=== PATIENT | female | born 1975 | race African-American/Black ===

== ENCOUNTER 2016-04-01 03:56 | Emergency (ER) | payer OTHER ==
[~2016-04-01] VITALS: Ht 157.5 cm; Wt 60.0 kg
[~2016-04-01 03:56] MED LIST: DICY1TAB25 PO; LISI-461 PO; PRT40 PO
[2016-04-01 04:02] VITALS: TEMP 36.7; Ht 157.5 cm; Wt 60.0 kg
--- NOTE | 2016-04-01 04:32 | EMERGENCY ROOM VISIT NOTE ---
History Report prepared by Chrissy: Liz Kemp Under the Supervision of: Dr. Kristin Moreland D.O. First contact with patient: 04:08 Chief Complaint: FLANK PAIN Stated Complaint: LOWER BACK AND STOMACH PAIN History of Present Illness The patient is a 40 year old female who presents to the Emergency Room with complaints of persistent left flank pain that began Saturday. She currently rates her discomfort as a 9/10 in severity. The patient states that she developed the left flank pain Saturday and additionally notes left lower quadrant abdominal pain. She denies ever having pain like this in the past. The patient denies any fever, nausea or vomiting. She notes a history of diverticulitis and pyelonephritis, but denies any history of a kidney stone. The patient states that she was at work this evening when she decided she needed further evaluation. She notes a history of a hysterectomy and an appendectomy. Source of History: patient Onset: Saturday Position: other (left flank) Symptom Intensity: 9/10 Timing: other (persistent) Associated Symptoms: + abdominal pain (left lower quadrant), No fevers, No nausea, No vomiting Review of Systems See HPI for pertinent positives & negatives. A total of 10 systems reviewed and were otherwise negative. Past Medical & Surgical Medical Problems: (1) ASTHMA, UNSPECIFIED (2) Hypertension Nos (3) Sarcoidosis (4) Tobacco Use Disorder Surgical Problems: (1) History of hysterectomy Family History Cancer Kidney disease Kidney stones Social History Smoking Status: Current Every Day Smoker Alcohol Use: none Drug Use: none Marital Status: in relationship Housing Status: lives with family Occupation Status: unemployed Current/Historical Medications Scheduled Lisinopril (Lisinopril), 10 MG PO QAM Metoprolol Succ (Toprol Xl) (Toprol-Xl), 1 TAB PO DAILY Allergies Coded Allergies: Morphine (Verified Allergy, Unknown, rash, 04/01/16) Physical Exam Vital Signs Date Time Temp Pulse Resp B/P Pulse Ox O2 Delivery O2 Flow Rate FiO2 04/01/16 07:30 76 15 141/88 100 Room Air 04/01/16 05:37 63 18 145/94 100 Room Air 04/01/16 04:02 36.7 92 18 161/97 98 Room Air Physical Exam HEENT: Head - normocephalic and atraumatic Pupils are equal, round, and reactive to light. Extraocular eye muscles are intact, and sclera are anicteric. Nose - moist nasal mucosa without discharge. Mouth - moist buccal mucosa. Oropharynx is nonerythematous and there is no tonsillar exudate or edema noted. Neck: Supple; no JVD, nuchal rigidity, cervical lymphadenopathy. Heart: Regular rate and rhythm. There is a normal S1 and S2 with no murmurs, clicks, or gallops appreciated. Lungs: Clear to auscultation bilaterally with no wheezes, rales, or rhonchi. Abdomen: Left lower abdominal pain with palpation. Soft, nondistended, with good bowel sounds. There are no palpable pulsatile masses or hepatosplenomegaly. There is no guarding, rigidity, or rebound noted. Back: Left CVA tenderness. Extremities: No evidence of cyanosis, clubbing, or edema. There are easily palpable peripheral pulses. Skin: warm and dry with good turgor and no rashes. Medical Decision & Procedures ER Provider Diagnostic Interpretation: CT SCAN OF THE ABDOMEN AND PELVIS WITH IV CONTRAST CLINICAL HISTORY: Generalized abdominal pain. COMPARISON STUDY: Abdominal CT dated 11/27/2013 and 04/27/10. MRCP dated 09/08/2015. TECHNIQUE: Following the IV administration of 93 cc of Optiray 320, CT scan of the abdomen and pelvis is performed from the lung bases to the proximal femora. Images are reviewed in the axial, sagittal, and coronal planes. IV contrast was administered without complication. Automated dose control exposure was utilized. CT DOSE: 256.64 mGy.cm FINDINGS: Lung bases: The heart is normal in size and without pericardial effusion. Emphysematous change is noted. No airspace consolidation or pleural effusion is seen. There is minimal dependent atelectasis. Liver: The contrast-enhanced liver is normal in size, contour, and attenuation. There is mild intra and extrahepatic biliary ductal dilatation, which is similar to the 11/27/2013 examination. Fatty infiltration is seen adjacent to the falciform ligament. The hepatic veins and portal veins are patent. An indeterminant 7 mm hypodensity in the right lobe seen on image #50 is unchanged from 2011. Gallbladder: Unremarkable. Spleen: Normal in size and attenuation. Pancreas: Unremarkable. Adrenal glands: Unremarkable. Kidneys: The contrast enhanced kidneys are normal in size and without hydronephrosis. The kidneys enhance symmetrically. Scattered subcentimeter cortical hypodensities likely represent cysts but are too small for definitive characterization. These are unchanged from previous. Abdominal vasculature: The abdominal aorta is normal in course and caliber noting mild but age advanced atherosclerotic calcification. Bowel: The small bowel and colon are normal in course and caliber. There is mild colonic diverticulosis without CT evidence of acute diverticulitis. This is greatest involving the right colon. The appendix is not identified and reported surgically absent. Peritoneum: There is no intraperitoneal free air or abdominal ascites. Lymphadenopathy: None. Pelvic viscera: The bladder is normal as visualized. The uterus is surgically absent. No adnexal lesion is seen. Skeletal structures: No lytic or blastic lesions are seen. IMPRESSION: 1. There are no acute infectious or inflammatory findings in the abdomen or pelvis. 2. Mild intra and extrahepatic biliary ductal dilatation is of indeterminant significance but unchanged from multiple prior studies dating back to 2010. Correlation with clinical findings and serum bilirubin levels will be required. 3. Mild colonic diverticulosis without CT evidence of acute diverticulitis. 4. Emphysema. 5. There is mild but age advanced atherosclerotic calcification of the abdominal aorta. 6. Additional findings as above. Electronically signed by: Neville Youssef M.D. 04/01/2016 8:12 AM Laboratory Results 04/01/16 04:35 Red Blood Count 3.93, Mean Corpuscular Volume 87.8, Mean Corpuscular Hemoglobin 30.3, Mean Corpuscular Hemoglobin Concent 34.5, Mean Platelet Volume 9.4, Neutrophils (%) (Auto) 55.2, Lymphocytes (%) (Auto) 31.8, Monocytes (%) (Auto) 11.4, Eosinophils (%) (Auto) 1.4, Basophils (%) (Auto) 0.2, Neutrophils # (Auto ) 3.05, Lymphocytes # (Auto) 1.76, Monocytes # (Auto) 0.63, Eosinophils # (Auto ) 0.08, Basophils # (Auto) 0.01 04/01/16 04:35 Test 04/01/16 04:25 04/01/16 04:35 Urine Color YELLOW Urine Appearance CLEAR (CLEAR) Urine pH 6.5 (4.5-7.5) Urine Specific [place] 1.025 (1.000-1.030) Urine Protein NEG (NEG) Urine Glucose (UA) NEG (NEG) Urine Ketones TRACE (NEG) Urine Occult Blood NEG (NEG) Urine Nitrite NEG (NEG) Urine Bilirubin NEG (NEG) Urine Urobilinogen NEG (NEG) Urine Leukocyte Esterase NEG (NEG) White Blood Count 5.53 K/uL (4.8-10.8) Red Blood Count 3.93 M/uL (4.2-5.4) Hemoglobin 11.9 g/dL (12.0-16.0) Hematocrit 34.5 % (37-47) Mean Corpuscular Volume 87.8 fL (80-100) Mean Corpuscular Hemoglobin 30.3 pg (25-34) Mean Corpuscular Hemoglobin Concent 34.5 g/dl (32-36) Platelet Count 200 K/uL (130-400) Mean Platelet Volume 9.4 fL (7.4-10.4) Neutrophils (%) (Auto) 55.2 % Lymphocytes (%) (Auto) 31.8 % Monocytes (%) (Auto) 11.4 % Eosinophils (%) (Auto) 1.4 % Basophils (%) (Auto) 0.2 % Neutrophils # (Auto) 3.05 K/uL (1.4-6.5) Lymphocytes # (Auto) 1.76 K/uL (1.2-3.4) Monocytes # (Auto) 0.63 K/uL (0.11-0.59) Eosinophils # (Auto) 0.08 K/uL (0-0.5) Basophils # (Auto) 0.01 K/uL (0-0.2) RDW Standard Deviation 42.3 fL (36.4-46.3) RDW Coefficient of Variation 13.0 % (11.5-14.5) Immature Granulocyte % (Auto) 0.0 % Immature Granulocyte # (Auto) 0.00 K/uL (0.00-0.02) Anion Gap 6.0 mmol/L (3-11) Est Creatinine Clear Calc Drug Dose 73.2 ml/min Estimated GFR () 106.1 Estimated GFR (Non- 91.6 BUN/Creatinine Ratio 15.4 (10-20) Calcium Level 8.6 mg/dl (8.5-10.1) Total Bilirubin 0.4 mg/dl (0.2-1) Direct Bilirubin < 0.1 mg/dl (0-0.2) Aspartate Amino Transf (AST/SGOT) 23 U/L (15-37) Alanine Aminotransferase (ALT/SGPT) 22 U/L (12-78) Alkaline Phosphatase 90 U/L (45-117) Total Protein 8.2 gm/dl (6.4-8.2) Albumin 3.7 gm/dl (3.4-5.0) Lipase 152 U/L (73-393) Laboratory results per my review. Medications Administered Medications (Trade) Dose Ordered Sig/Joycelyn Route Start Time Stop Time Status Last Admin Dose Admin Hydromorphone HCl (Dilaudid Inj) 1 mg NOW STAT IV 04/01/16 04:33 04/01/16 04:35 DC 04/01/16 04:40 1 MG Hydromorphone HCl (Dilaudid Inj) 1 mg NOW STAT IV 04/01/16 08:04 04/01/16 08:05 DC 04/01/16 08:12 1 MG Procedure The patient was treated with Dilaudid Inj 1 mg IV X 2 ED Course 0421: Past medical records reviewed. The patient was evaluated in room B5. A complete history and physical exam was performed. An IV lock was initiated and labs are drawn as above. The patient began to prep for CT scan of the abdomen/ pelvis. 0433: Ordered Dilaudid Inj 1 mg IV. 0530: The patient is sleeping at this time. 0602: I reevaluated the patient and she was sleeping. She states that she feels more comfortable. She finished her CT prep. She went for CT scan of the abdomen/pelvis as described above. Upon returning, the patient complained of increased pain in the left lower quadrant. She was given a second dose of IV Dilaudid. I reviewed the results of the CT scan with the patient. I also reviewed the results of her labs with her. I have asked the patient to follow up closely tomorrow morning with her PCP for recheck. If her symptoms were to worsen or if she were to develop a fever or vomiting, she was directed to return here to the emergency department. Medical Decision The patient is a 40 year old female who presents to the ED with flank pain. Differential diagnosis includes pyelonephritis, cystitis, diverticulitis, colitis. Lab interpretation: urinalysis positive for ketones, no leukocytosis, anemic with a hemoglobin of 11.9, normal renal function, normal glucose and lipase, normal LFTs. This is a 40-year-old female patient who presents to the emergency department with left lower quadrant abdominal pain and seems to radiate into her left flank. She has no history of kidney stones. She does have a history of diverticulitis, C. difficile colitis, and pyelonephritis. Urinalysis was unremarkable. CT scan showed no evidence of colitis, pyelonephritis, or diverticulitis. I am not sure what is causing the patient's abdominal pain at this time. She will require close follow-up with her PCP. Impression Primary Impression: Left lower quadrant abdominal pain of unknown etiology Scribe Attestation The scribe's documentation has been prepared under my direction and personally reviewed by me in its entirety. I confirm that the note above accurately reflects all work, treatment, procedures, and medical decision making performed by me. Departure Information Referrals Deedee Bhatt D.O. (PCP) Patient Instructions My [facility]
[2016-04-01] MEDS ORDERED: HYDROmorphone INJ 1 MG/ML SYR IV STA ×2 (04:33→08:04)
[2016-04-01 04:44] LABS: BASO % 0.2 %; BASO ABS # 0.01 K/uL (0-0.2); COMPLETE YES; EOS % 1.4 %; HEMATOCRIT 34.5 % (37-47); LYMPH % 31.8 %; LYMPH ABS # 1.76 K/uL (1.2-3.4); MEAN CELL VOLUME 87.8 fL (80-100); MEAN CORPUSCULAR HEMOGLOBIN 30.3 pg (25-34); MEAN CORPUSCULAR HGB CONC 34.5 g/dl (32-36); MEAN PLATELET VOLUME 9.4 fL (7.4-10.4); MONO % 11.4 %; NEUT % 55.2 %; PLATELET COUNT 200 K/uL (130-400); RED BLOOD COUNT 3.93 M/uL (4.2-5.4); WHITE BLOOD COUNT 5.53 K/uL (4.8-10.8)
[2016-04-01] MEDS ORDERED: OPTIRAY 320 IV PRN (04:45)
[2016-04-01 04:53] LABS: URINE APPEARANCE CLEAR (CLEAR); URINE BILIRUBIN NEG (NEG); URINE COLOR YELLOW; URINE NITRITE NEG (NEG); URINE PH 6.5 (4.5-7.5); URINE SPECIFIC GRAVITY 1.025 (1.000-1.030); UROBILINOGEN NEG (NEG)
[2016-04-01 05:03] LABS: MANUAL MICROSCOPIC REQUIRED? NO; REVIEW REQ? NO
[2016-04-01 05:03] LABS: ALT/SGPT 22 U/L (12-78); AST/SGOT 23 U/L (15-37); BLOOD UREA NITROGEN 12 mg/dl (7-18); BUN/CREATININE RATIO 15.4 (10-20); CALCIUM 8.6 mg/dl (8.5-10.1); CARBON DIOXIDE 29 mmol/L (21-32); CHLORIDE 107 mmol/L (98-107); GLUCOSE 96 mg/dl (70-99); POTASSIUM 3.5 mmol/L (3.5-5.1); SODIUM 142 mmol/L (136-145)
[2016-04-01 05:06] LABS: ALKALINE PHOSPHATASE 90 U/L (45-117)
[2016-04-01] MEDS ORDERED: METO25TA3 PO (06:50)
--- NOTE | 2016-04-01 08:14 | DIAGNOSTIC IMAGING REPORT ---
CT SCAN OF THE ABDOMEN AND PELVIS WITH IV CONTRAST CLINICAL HISTORY: Generalized abdominal pain. COMPARISON STUDY: Abdominal CT dated 11/27/2013 and 04/27/10. MRCP dated 09/08/2015. TECHNIQUE: Following the IV administration of 93 cc of Optiray 320, CT scan of the abdomen and pelvis is performed from the lung bases to the proximal femora. Images are reviewed in the axial, sagittal, and coronal planes. IV contrast was administered without complication. Automated dose control exposure was utilized. CT DOSE: 256.64 mGy.cm FINDINGS: Lung bases: The heart is normal in size and without pericardial effusion. Emphysematous change is noted. No airspace consolidation or pleural effusion is seen. There is minimal dependent atelectasis. Liver: The contrast-enhanced liver is normal in size, contour, and attenuation. There is mild intra and extrahepatic biliary ductal dilatation, which is similar to the 11/27/2013 examination. Fatty infiltration is seen adjacent to the falciform ligament. The hepatic veins and portal veins are patent. An indeterminant 7 mm hypodensity in the right lobe seen on image #50 is unchanged from 2011. Gallbladder: Unremarkable. Spleen: Normal in size and attenuation. Pancreas: Unremarkable. Adrenal glands: Unremarkable. Kidneys: The contrast enhanced kidneys are normal in size and without hydronephrosis. The kidneys enhance symmetrically. Scattered subcentimeter cortical hypodensities likely represent cysts but are too small for definitive characterization. These are unchanged from previous. Abdominal vasculature: The abdominal aorta is normal in course and caliber noting mild but age advanced atherosclerotic calcification. Bowel: The small bowel and colon are normal in course and caliber. There is mild colonic diverticulosis without CT evidence of acute diverticulitis. This is greatest involving the right colon. The appendix is not identified and reported surgically absent. Peritoneum: There is no intraperitoneal free air or abdominal ascites. Lymphadenopathy: None. Pelvic viscera: The bladder is normal as visualized. The uterus is surgically absent. No adnexal lesion is seen. Skeletal structures: No lytic or blastic lesions are seen. IMPRESSION: 1. There are no acute infectious or inflammatory findings in the abdomen or pelvis. 2. Mild intra and extrahepatic biliary ductal dilatation is of indeterminant significance but unchanged from multiple prior studies dating back to 2010. Correlation with clinical findings and serum bilirubin levels will be required. 3. Mild colonic diverticulosis without CT evidence of acute diverticulitis. 4. Emphysema. 5. There is mild but age advanced atherosclerotic calcification of the abdominal aorta. 6. Additional findings as above. Electronically signed by: Neville Youssef M.D. 04/01/2016 8:12 AM Dictated Date/Time: 04/01/2016 8:03 AM
[2016-04-01 08:48] VITALS: BP 112/76; PULSE 91; O2SAT 96
== END 2016-04-01 08:52 | disposition home or self-care (01) ==
LOC: C.EDB 03:57
DX: R10.32 Left lower quadrant pain (principal); J45.909 Unspecified asthma, uncomplicated; I10 Essential (primary) hypertension; F17.210 Nicotine dependence, cigarettes, uncomplicated; Z79.899 Other long term (current) drug therapy

== ENCOUNTER 2016-04-29 03:36 | Emergency (ER) | payer OTHER ==
[~2016-04-29] VITALS: Ht 157.5 cm; Wt 60.6 kg
[~2016-04-29 03:36] MED LIST changes: -DICY1TAB25 PO; +METO25TA3 PO; -PRT40 PO
[2016-04-29 03:40] VITALS: TEMP 36.9; Ht 157.5 cm; Wt 60.6 kg
[2016-04-29] MEDS ORDERED: KETOROLAC TROMETHAMINE 30 MG/ML VIAL IV STA (04:06)
[2016-04-29] MEDS ORDERED: SODIUM CHLORIDE 0.9% 1000ML 1,000 ML IV ONE (04:15)
[2016-04-29 04:26] LABS: BASO % 0.2 %; BASO ABS # 0.01 K/uL (0-0.2); COMPLETE YES; EOS % 1.7 %; HEMATOCRIT 35.3 % (37-47); IG% 0.4 %; LYMPH % 36.9 %; LYMPH ABS # 1.74 K/uL (1.2-3.4); MEAN CELL VOLUME 89.8 fL (80-100); MEAN CORPUSCULAR HEMOGLOBIN 30.8 pg (25-34); MEAN CORPUSCULAR HGB CONC 34.3 g/dl (32-36); MEAN PLATELET VOLUME 9.6 fL (7.4-10.4); NEUT % 50.8 %; PLATELET COUNT 196 K/uL (130-400); RED BLOOD COUNT 3.93 M/uL (4.2-5.4); WHITE BLOOD COUNT 4.72 K/uL (4.8-10.8)
[2016-04-29] MEDS ORDERED: VARE1PAK15 PO (04:26)
[2016-04-29] MEDS ORDERED: METO25TA3 PO (04:26)
[2016-04-29 04:35] LABS: CALCIUM 9.1 mg/dl (8.5-10.1); CREATININE 0.82 mg/dl (0.60-1.20); POTASSIUM 3.6 mmol/L (3.5-5.1)
[2016-04-29 04:38] LABS: ALB/GLOB RATIO 0.8 (0.9-2)
[2016-04-29 05:55] VITALS: BP 160/102; PULSE 70; O2SAT 99
--- NOTE | 2016-04-29 09:20 | DIAGNOSTIC IMAGING REPORT ---
CHEST ONE VIEW PORTABLE CLINICAL HISTORY: Left-sided chest pain. COMPARISON STUDY: Chest radiograph April 01, 2012. FINDINGS: Lung volumes are normal. There is no pneumothorax or pleural effusion. Cardiac size is normal. Mediastinal contours are normal. There is no evidence of pulmonary edema. IMPRESSION: No acute cardiopulmonary findings. Electronically signed by: Nixon Guo M.D. 04/29/2016 9:19 AM Dictated Date/Time: 04/29/2016 9:19 AM
--- NOTE | 2016-04-30 00:22 | EMERGENCY ROOM VISIT NOTE ---
History First contact with patient: 03:48 Chief Complaint: OTHER COMPLAINT Stated Complaint: PAIN UNDER LEFT BREAST GOING DOWN LT SIDE History of Present Illness The patient is a 40 year old female who presents to the Emergency Room with complaints of left sided chest wall pain worsening over the past 2-3 hours. Patient states that her pain is primarily under her left breast radiating to her left side flank. 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 She states that she was assisting getting someone to the bathroom , and started having her pain shortly after. The patient does not have central chest pain or shortness of breath. No reported rash or other distinct injury. She rates her discomfort a 7/10. Review of Systems More than 10 systems were reviewed and otherwise negative with the exception of history of present illness. Past Medical/Surgical History Medical Problems: (1) ASTHMA, UNSPECIFIED (2) Hypertension Nos (3) Sarcoidosis (4) Tobacco Use Disorder Surgical Problems: (1) History of hysterectomy Family History Cancer Kidney disease Kidney stones Social History Smoking Status: Current Every Day Smoker Alcohol Use: none Drug Use: none Marital Status: in relationship Housing Status: lives with family Occupation Status: unemployed Current/Historical Medications Scheduled Metoprolol Succ (Toprol Xl) (Toprol-Xl), 25 MG PO DAILY Varenicline Tartrate (Chantix Starting Month Pa), DOSE PO UD Allergies Coded Allergies: Morphine (Verified Allergy, Unknown, rash, 04/29/16) Physical Exam Vital Signs Date Time Temp Pulse Resp B/P Pulse Ox O2 Delivery O2 Flow Rate FiO2 04/29/16 05:55 70 18 160/102 99 Room Air 04/29/16 03:40 36.9 84 18 167/111 99 Room Air Pain Rating (0-10): 0 Physical Exam VITALS: Vitals are noted on the nurse's note and reviewed by myself. Vital signs stable. GENERAL: Well-developed, well-nourished, black female, who is in no acute distress and resting comfortably. Patient is cooperative with the examination. HEAD: Normocephalic atraumatic. EARS: External ear normal. External auditory canals clear, tympanic membranes pearly carty without erythema or effusion bilaterally. EYES: Pupils equal round and reactive to light and accommodation. Conjunctivae without injection, sclerae without icterus. Extraocular movements intact. NOSE: Patent, turbinates without inflammation or discharge. MOUTH: Mucous membranes moist. Tonsils are not enlarged. Pharynx without erythema, blood, or exudate. Uvula midline. Airway patent. NECK: Supple without nuchal rigidity. No lymphadenopathy. No thyromegaly. Cervical spine is nontender. HEART: Regular rate and rhythm without murmurs gallops or rubs. LUNGS: Clear to auscultation bilaterally without wheezes, rales or rhonchi. No retractions or accessory muscle use. Medical Decision & Procedures ER Provider Diagnostic Interpretation: CHEST ONE VIEW PORTABLE CLINICAL HISTORY: Left-sided chest pain. COMPARISON STUDY: Chest radiograph April 01, 2012. FINDINGS: Lung volumes are normal. There is no pneumothorax or pleural effusion. Cardiac size is normal. Mediastinal contours are normal. There is no evidence of pulmonary edema. IMPRESSION: No acute cardiopulmonary findings. Laboratory Results 04/29/16 04:00 Red Blood Count 3.93, Mean Corpuscular Volume 89.8, Mean Corpuscular Hemoglobin 30.8, Mean Corpuscular Hemoglobin Concent 34.3, Mean Platelet Volume 9.6, Neutrophils (%) (Auto) 50.8, Lymphocytes (%) (Auto) 36.9, Monocytes (%) (Auto) 10.0, Eosinophils (%) (Auto) 1.7, Basophils (%) (Auto) 0.2, Neutrophils # (Auto ) 2.40, Lymphocytes # (Auto) 1.74, Monocytes # (Auto) 0.47, Eosinophils # (Auto ) 0.08, Basophils # (Auto) 0.01 04/29/16 04:00 Test 04/29/16 04:00 04/29/16 04:16 White Blood Count 4.72 K/uL (4.8-10.8) Red Blood Count 3.93 M/uL (4.2-5.4) Hemoglobin 12.1 g/dL (12.0-16.0) Hematocrit 35.3 % (37-47) Mean Corpuscular Volume 89.8 fL (80-100) Mean Corpuscular Hemoglobin 30.8 pg (25-34) Mean Corpuscular Hemoglobin Concent 34.3 g/dl (32-36) Platelet Count 196 K/uL (130-400) Mean Platelet Volume 9.6 fL (7.4-10.4) Neutrophils (%) (Auto) 50.8 % Lymphocytes (%) (Auto) 36.9 % Monocytes (%) (Auto) 10.0 % Eosinophils (%) (Auto) 1.7 % Basophils (%) (Auto) 0.2 % Neutrophils # (Auto) 2.40 K/uL (1.4-6.5) Lymphocytes # (Auto) 1.74 K/uL (1.2-3.4) Monocytes # (Auto) 0.47 K/uL (0.11-0.59) Eosinophils # (Auto) 0.08 K/uL (0-0.5) Basophils # (Auto) 0.01 K/uL (0-0.2) RDW Standard Deviation 44.8 fL (36.4-46.3) RDW Coefficient of Variation 13.5 % (11.5-14.5) Immature Granulocyte % (Auto) 0.4 % Immature Granulocyte # (Auto) 0.02 K/uL (0.00-0.02) Anion Gap 9.0 mmol/L (3-11) Est Creatinine Clear Calc Drug Dose 77.4 ml/min Estimated GFR () 103.0 Estimated GFR (Non- 88.9 BUN/Creatinine Ratio 16.0 (10-20) Calcium Level 9.1 mg/dl (8.5-10.1) Total Bilirubin 0.3 mg/dl (0.2-1) Aspartate Amino Transf (AST/SGOT) 26 U/L (15-37) Alanine Aminotransferase (ALT/SGPT) 21 U/L (12-78) Alkaline Phosphatase 99 U/L (45-117) Total Protein 8.9 gm/dl (6.4-8.2) Albumin 4.0 gm/dl (3.4-5.0) Globulin 4.9 gm/dl (2.5-4.0) Albumin/Globulin Ratio 0.8 (0.9-2) Lipase 164 U/L (73-393) Bedside Troponin I 0.000 ng/ml (0-0.045) Medications Administered Medications (Trade) Dose Ordered Sig/Joycelyn Route Start Time Stop Time Status Last Admin Dose Admin Sodium Chloride (Nss 1000ml) 1,000 ml @ 999 mls/hr Q1H1M ONCE IV 04/29/16 04:15 04/29/16 05:15 DC 04/29/16 04:15 999 MLS/HR Ketorolac Tromethamine (Toradol Inj) 30 mg NOW STAT IV 04/29/16 04:06 04/29/16 04:09 DC 04/29/16 04:22 30 MG ED Course Physical exam and history were performed. Nursing notes and EMR were reviewed. 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 Her pain is essentially underneath her left breast. She does not have rash or contusion to this area. EKG was performed and was normal sinus rhythm at 77. Minute without ischemia or ectopy. EKG was unchanged compared to EKG of 06/27/2012. IV access was established and labs were obtained. Chest x-ray was performed. The patient was hydrated with normal saline. She was given 30 mg IV Toradol. The patient's blood work is as above and was reviewed. She does not have a significantly elevated white blood cell count, anemia, bandemia, gross electrolyte imbalance. Lipase and transaminases are nondiagnostic. Troponin 1 is negative. The patient overall has improvement of pain after hydration and Toradol. She appears stable for discharge home, as I suspect her symptoms are muscular skeletal in nature. I did recommend that she follow with her primary care physician in the next few days for recheck of her condition. The patient was pleased with plan of care and voiced understanding. The chart was completed utilizing [employer] Speech Voice Recognition Software. Grammatical errors, random word insertions, pronoun errors, and incomplete sentences are an occasional consequence of this system due to software limitations, ambient noise, and hardware issues. Any formal questions or concerns about the content, text, or information contained within the body of this dictation should be directly addressed to the provider for clarification. . 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 Return to work on 05/01/2016. Please excuse. IMPORTANT VISIT INFORMATION Patient Instructions My [facility] Additional Instructions You were seen and evaluated today on an emergency basis only. This is not a substitute for, or an effort to provide, complete comprehensive medical care. It is not possible to recognize and treat all injuries or illnesses in a single emergency department visit. For this reason it is recommended that you followup with your primary care physician in the next 2-3 days for recheck of your condition. For baseline pain relief you may alternate ibuprofen and acetaminophen every 4 hours for pain control. Take 600 mg ibuprofen (Advil) and then 4 hours later take 1000 mg acetaminophen (Tylenol). Do not take more than 3000 mg acetaminophen in a single day. You are welcome to return to the emergency department anytime with new, worsening, or concerning symptoms. Work Instructions Additional Work Instructions: Patient was seen and evaluated in the emergency department for medical care. Return to work on 05/01/2016. Please excuse.
== END 2016-04-29 05:59 | disposition home or self-care (01) ==
LOC: C.EDB 03:37 → C.EDA 05:59
DX: R07.89 Other chest pain (principal); I10 Essential (primary) hypertension; J45.909 Unspecified asthma, uncomplicated; F17.200 Nicotine dependence, unspecified, uncomplicated; Z90.710 Acquired absence of both cervix and uterus

== ENCOUNTER 2016-06-29 23:03 | Emergency (ER) | payer OTHER ==
[~2016-06-29] VITALS: Ht 157.5 cm; Wt 59.2 kg
[~2016-06-29 23:03] MED LIST changes: -LISI-461 PO; +VARE1PAK15 PO
[2016-06-29 23:08] VITALS: Ht 157.5 cm; Wt 59.2 kg
[2016-06-29] MEDS ORDERED: ALBUT/IPRATROP 3MG/0.5MG NEB 3 ML VIAL INH STA (23:14)
[2016-06-30] MEDS ORDERED: ACETAMINOPHEN 500 MG TAB PO STA (00:29)
[2016-06-30 01:30] LABS: INFLUENZA A PCR Neg for Influ A (NEG); INFLUENZA B PCR Neg for Influ B (NEG)
[2016-06-30 01:34] VITALS: BP 139/89; PULSE 91; TEMP 37.8; O2SAT 97
--- NOTE | 2016-06-30 01:36 | EMERGENCY ROOM VISIT NOTE ---
History First contact with patient: 23:11 Chief Complaint: COUGH Stated Complaint: MID-LOWER BACK PAIN, HURTS WHEN BREATHING Nursing Triage Summary: c/o mid back pain that radiates into bilateal sides with fever and cough with green sputum x 1 day. pt took tylenol at 1800 and motrin at 2000. History of Present Illness The patient is a 40 year old female who presents to the Emergency Room with complaints of cough, congestion, myalgias and arthralgias for the past day. Patient works at [employer]. She did receive her flu vaccine. She is also received her pneumonia vaccine. She continues to smoke. Patient states other people at the [place] [facility] have been sick. Patient denies chest pain, dyspnea, neck stiffness, sore throat, abdominal pain, earache, lightheadedness or dizziness. Review of Systems See HPI for pertinent positives & negatives. A total of 10 systems reviewed and were otherwise negative. Past Medical/Surgical History Medical Problems: (1) ASTHMA, UNSPECIFIED (2) Hypertension Nos (3) Sarcoidosis (4) Tobacco Use Disorder Surgical Problems: (1) History of hysterectomy Family History Cancer Kidney disease Kidney stones Social History Smoking Status: Current Every Day Smoker Alcohol Use: none Drug Use: none Marital Status: in relationship Housing Status: lives with family Occupation Status: employed Current/Historical Medications No Active Prescriptions or Reported Meds Allergies Coded Allergies: Morphine (Verified Allergy, Unknown, rash, 04/29/16) Physical Exam Vital Signs Date Time Temp Pulse Resp B/P Pulse Ox O2 Delivery O2 Flow Rate FiO2 06/30/16 01:34 37.8 91 20 139/89 97 Room Air 06/30/16 00:38 38.1 95 20 140/96 100 Room Air 06/29/16 23:08 38.2 100 18 171/114 100 Room Air Physical Exam VITALS: Vitals are noted on the nurse's note and reviewed by myself. Vital signs be. GENERAL: Pleasant female mildly ill-appearing, in no acute distress, nondiaphoretic, well-developed well-nourished. SKIN: The skin was without rashes, erythema, edema, or bruising. There is no tenting of the skin. Capillary reflex less than 2 seconds. HEAD: Normocephalic atraumatic. EARS: External auditory canals clear, tympanic membranes pearly carty without erythema or effusion bilaterally. EYES: Pupils equal round and reactive to light and accommodation. Conjunctivae without injection, sclerae without icterus. Extraocular movements intact. NOSE: Patent, turbinates without inflammation or discharge. No sinus tenderness. MOUTH: Mucous membranes moist. Pharynx without erythema or exudate. Uvula midline. Airway patent. Tongue does not deviate. NECK: Supple without nuchal rigidity. No lymphadenopathy. No thyromegaly. Cervical spine is nontender. No JVD. No meningeal signs HEART: Regular rate and rhythm without murmurs gallops or rubs. LUNGS: Mild diffuse end expiratory wheezes, without rales or rhonchi. No dullness to percussion. No retractions or accessory muscle use. ABDOMEN: Positive bowel sounds x 4. Normal tympanic percussion. Soft, nontender, without masses or organomegaly. Goodwin sign negative. No guarding or rebound tenderness. MUSCULOSKELETAL: No muscle atrophy, erythema, or edema noted. NEURO: Patient was alert and oriented to person place and time. Normal sensation to light and sharp touch. No focal neurological deficits. Medical Decision & Procedures Laboratory Results Test 06/29/16 23:25 Influenza Type A (RT-PCR) Neg for Influ A (NEG) Influenza Type A Antigen Neg for Influ A (NEG) Influenza Type B Antigen Neg for Influ B (NEG) Influenza Type B (RT-PCR) Neg for Influ B (NEG) Medications Administered Medications (Trade) Dose Ordered Sig/Joycelyn Route Start Time Stop Time Status Last Admin Dose Admin Albuterol/ Ipratropium (Duoneb) 3 ml NOW STAT INH 06/29/16 23:14 06/29/16 23:15 DC 06/29/16 23:21 3 ML Prednisone (PredniSONE TAB) 60 mg NOW STAT PO 06/29/16 23:14 06/29/16 23:15 DC 06/29/16 23:21 60 MG Acetaminophen (Tylenol Tab) 1,000 mg NOW STAT PO 06/30/16 00:29 06/30/16 00:30 DC 06/30/16 00:36 1,000 MG ED Course Prior records/ancillary studies reviewed. Triage Nursing notes reviewed. The patient's history was concerning for fever and cough. Differential diagnosis: Etiologies such as viral syndrome, otitis, pharyngitis, pneumonia, influenza, meningitis, urinary tract infection, sepsis, bacteremia, as well as others were entertained. Physical examination: patient is alert, interactive, low grade fever ER treatment provided: prednisone, duoneb, APAP On reassessment the patient felt better. Diagnostics interpreted by me: The labs revealed neg flu Imaging studies: chest xray with no acute consolidation, pneumothorax or free air per my interpretation This appears to be consistent with influenza. Patient was neurovascularly and neurologically intact. She is well-appearing. She is nontoxic. No pneumonia. No signs of meningitis. She was advised take medicines as directed and to follow-up family care in a few days or here in the ER sooner for high fevers, lethargy, difficulty breathing, worsening signs or symptoms or as needed. By the evaluation outlined above emergent etiologies such as otitis, pharyngitis, pneumonia, meningitis, urinary tract infection, sepsis, bacteremia, as well as others were deemed relatively unlikely. The pt informed about the findings as listed above. All questions were answered and pleased with the treatment. Return instructions were outlined and the patient was discharged in stable condition. Outpatient prescription management: prednisone Referral: The patient was referred back to their primary care physician for follow-up in 2 to 3 days for a recheck of the current condition. case reviewed with my Attending Medical Decision as above Impression Primary Impression: Influenza Additional Impression: Asthmatic bronchitis Departure Information Dispostion Home / Self-Care Condition GOOD Prescriptions No Active Prescriptions or Reported Meds Referrals Deedee Bhatt D.O. (PCP) Patient Instructions My [facility] Additional Instructions Prednisone 50 m tablet daily for the next 4 days. Take this in the morning. Acetaminophen(Tylenol) may be used for fever or pain. Use 1000mg every six hours as needed. Avoid using more than 3000mg in a 24 hour period. (AND/OR) Ibuprofen(Motrin, Advil) may be used for fever or pain. Use 600mg every six hours as needed. Take with food. Avoid using more than 2400mg in a 24 hour period. Do not use 2400mg per day for more than three consecutive days without physician direction. Prolonged inappropriate use can lead to stomach upset or ulcers. Afrin nasal spray: 2-3 sprays to each nostril twice daily as needed for congestion. Do not use for more than 3-4 days because it can lead to worsening rebound congestion. Pseudoephedrine(Sudaphed): 30-60mg every 6 hours as needed for nasal congestion. Do not take this with other stimulant products or supplements. Albuterol Inhaler: Take 2 puffs four times daily for seven days, then as needed. Rest and drink plenty of fluids. Controlling your fever with Tylenol and Ibuprofen as above will make you feel better. Wash your hands after nose blowing, sneezing, or coughing. Most germs are spread through contact, therefore improper hygiene may result in your close contacts and loved ones becoming ill just like you. Continue current medications. Return to the ER for severe headache, neck stiffness, chest pain, difficulty breathing, fevers, vomiting, worsening of your condition, or as needed. Follow up with your primary physician this week for a recheck of your current condition. Problem Qualifiers
[2016-06-30] MEDS ORDERED: PRED50TA PO (01:37)
[2016-06-30] MEDS ORDERED: ALBUTEROL HFA 8 GM INHALER INH STA (01:37)
--- NOTE | 2016-06-30 07:53 | DIAGNOSTIC IMAGING REPORT ---
CHEST 2 VIEWS ROUTINE HISTORY: cough/fever COMPARISON: Chest 04/29/2016. FINDINGS: The lungs are clear. Cardiac silhouette is normal in size. No pleural effusions. No pneumothorax. IMPRESSION: No acute process. Electronically signed by: Willian Stallworth M.D. 06/30/2016 7:51 AM Dictated Date/Time: 06/30/2016 7:51 AM
== END 2016-06-30 01:51 | disposition home or self-care (01) ==
LOC: C.EDB 23:04 → C.EDC 06-30 01:51
DX: J11.1 Influenza due to unidentified influenza virus with other respiratory manifestations (principal); J45.909 Unspecified asthma, uncomplicated; F17.210 Nicotine dependence, cigarettes, uncomplicated; I10 Essential (primary) hypertension; Z90.710 Acquired absence of both cervix and uterus; Z80.9 Family history of malignant neoplasm, unspecified

== ENCOUNTER 2016-07-07 23:41 | Emergency (ER) | payer OTHER ==
[~2016-07-07] VITALS: Ht 157.5 cm; Wt 58.8 kg
[2016-07-07 23:54] VITALS: TEMP 37.2; Ht 157.5 cm; Wt 58.8 kg
[2016-07-08 00:39] LABS: BASO % 0.1 %; BASO ABS # 0.01 K/uL (0-0.2); COMPLETE YES; EOS % 2.6 %; HEMATOCRIT 36.6 % (37-47); IG% 0.4 %; LYMPH % 20.3 %; LYMPH ABS # 1.43 K/uL (1.2-3.4); MEAN CELL VOLUME 95.1 fL (80-100); MEAN CORPUSCULAR HEMOGLOBIN 31.4 pg (25-34); MEAN CORPUSCULAR HGB CONC 33.1 g/dl (32-36); MEAN PLATELET VOLUME 8.7 fL (7.4-10.4); MONO % 8.4 %; NEUT % 68.2 %; PLATELET COUNT 290 K/uL (130-400); RED BLOOD COUNT 3.85 M/uL (4.2-5.4); WHITE BLOOD COUNT 7.05 K/uL (4.8-10.8)
[2016-07-08 00:43] LABS: URINE APPEARANCE CLEAR (CLEAR); URINE BILIRUBIN NEG (NEG); URINE COLOR YELLOW; URINE EPITHELIAL CELL AUTO >30 /lpf (0-5); URINE NITRITE NEG (NEG); URINE SPECIFIC GRAVITY 1.032 (1.000-1.030); UROBILINOGEN NEG (NEG); ZZUR CULT IF INDIC CLEAN CATCH YES
[2016-07-08 00:51] LABS: MANUAL MICROSCOPIC REQUIRED? NO; REVIEW REQ? NO
[2016-07-08 00:57] LABS: ALT/SGPT 24 U/L (12-78); AST/SGOT 18 U/L (15-37); BLOOD UREA NITROGEN 16 mg/dl (7-18); BUN/CREATININE RATIO 17.4 (10-20); CALCIUM 8.8 mg/dl (8.5-10.1); CARBON DIOXIDE 29 mmol/L (21-32); CHLORIDE 106 mmol/L (98-107); CREATININE 0.91 mg/dl (0.60-1.20); GLUCOSE 100 mg/dl (70-99); POTASSIUM 3.9 mmol/L (3.5-5.1); SODIUM 142 mmol/L (136-145)
[2016-07-08 01:00] LABS: ALKALINE PHOSPHATASE 83 U/L (45-117)
[2016-07-08] MEDS ORDERED: KETOROLAC TROMETHAMINE 30 MG/ML VIAL IV STA (01:16)
[2016-07-08] MEDS ORDERED: SODIUM CHLORIDE 0.9% 1000ML 1,000 ML IV STA (01:16)
--- NOTE | 2016-07-08 02:09 | EMERGENCY ROOM VISIT NOTE ---
History Report prepared by Chrissy: Mehrdad Still Under the Supervision of: Dr. Saul Perez D.O. First contact with patient: 23:59 Chief Complaint: ILLNESS Stated Complaint: COUGHING,LT BACK PAIN,BP HIGH,LOW FEVER History of Present Illness The patient is a 40 year old female who presents to the Emergency Room with complaints of a worsening illness starting earlier tonight. The patient states that she has been having a cough producing green mucus, sharp abdominal pain, back pain, and a fever of 100.5. She additionally states that the abdominal pain is worse with coughing. The patient states that she is a smoker and has asthma. The patient states that on June 29 she was diagnosed with the flu and bronchitis, and she was given prednisone and albuterol. She states that she has a history of a hysterectomy, colitis, diverticulitis, and C Diff. Pt denies headache, change in vision, chest pain, shortness of breath, nausea, vomiting, diarrhea, pain with urination, and melena. Source of History: patient Onset: earlier tonight Position: other (global) Quality: other (illness) Associated Symptoms: + abdominal pain, + back pain, + cough, + fevers Review of Systems See HPI for pertinent positives & negatives. A total of 10 systems reviewed and were otherwise negative. Past Medical & Surgical Medical Problems: (1) ASTHMA, UNSPECIFIED (2) Hypertension Nos (3) Sarcoidosis (4) Tobacco Use Disorder Surgical Problems: (1) History of hysterectomy Family History Cancer Kidney disease Kidney stones Social History Smoking Status: Current Every Day Smoker Alcohol Use: none Drug Use: none Marital Status: in relationship Housing Status: lives with family Occupation Status: employed Current/Historical Medications Scheduled Benzonatate (Tessalon Perles), 100 MG PO TID Allergies Coded Allergies: Morphine (Verified Allergy, Unknown, rash, 07/08/16) Physical Exam Vital Signs Date Time Temp Pulse Resp B/P Pulse Ox O2 Delivery O2 Flow Rate FiO2 07/08/16 02:22 76 16 128/71 98 07/08/16 01:45 91 16 129/68 97 Room Air 07/07/16 23:54 37.2 101 18 150/92 96 Room Air Physical Exam GENERAL: sitting up in bed, disheveled, no acute distress EYE EXAM: normal conjunctiva, PERRL and EOM's grossly intact OROPHARYNX: no exudate, no erythema, lips, buccal mucosa, and tongue normal and mucous membranes are moist NECK: supple, no nuchal rigidity, no adenopathy, non-tender LUNGS: Non-productive cough. Clear to auscultation. Normal chest wall mechanics HEART: no murmurs, S1 normal and S2 normal ABDOMEN: abdomen soft, non-tender, normo-active bowel sounds, no masses, no rebound or guarding. BACK: Back is symmetrical on inspection and there is no deformity, no midline tenderness, no CVA tenderness. SKIN: no rashes and no bruising UPPER EXTREMITIES: upper extremities are grossly normal. LOWER EXTREMITIES: Calves are equal bilaterally. No pitting edema. NEURO EXAM: Normal sensorium, cranial nerves II-XII grossly intact, normal speech, no gross weakness of arms, no gross weakness of legs. Gross sensation intact. Medical Decision & Procedures ER Provider Diagnostic Interpretation: Radiology results as stated below per my review and the radiologist's interpretation: CHEST 2 VIEW: No focal infiltrate. No pneumothorax CT ABDOMEN& PELVIS: No renal calculi. No hydronephrosis. Mild intrahepatic and extrahepatic biliary ductal dilatation, similar to prior CT 04/01/16. No free fluid or free air. No evidence of bowel obstruction. Mild colonic diverticulosis without evidence of diverticulitis. Mild to moderate dense stool noted in colon. Post appendectomy. Uterus is absent. Solid Organs otherwise are unremarkable in unenhanced appearance. Mild atherosclerotic calcifications. Laboratory Results 07/08/16 00:25 Red Blood Count 3.85, Mean Corpuscular Volume 95.1, Mean Corpuscular Hemoglobin 31.4, Mean Corpuscular Hemoglobin Concent 33.1, Mean Platelet Volume 8.7, Neutrophils (%) (Auto) 68.2, Lymphocytes (%) (Auto) 20.3, Monocytes (%) (Auto) 8.4, Eosinophils (%) (Auto) 2.6, Basophils (%) (Auto) 0.1, Neutrophils # (Auto) 4.81, Lymphocytes # (Auto) 1.43, Monocytes # (Auto) 0.59, Eosinophils # (Auto) 0.18, Basophils # (Auto) 0.01 07/08/16 00:25 Test 07/08/16 00:25 07/08/16 01:10 White Blood Count 7.05 K/uL (4.8-10.8) Red Blood Count 3.85 M/uL (4.2-5.4) Hemoglobin 12.1 g/dL (12.0-16.0) Hematocrit 36.6 % (37-47) Mean Corpuscular Volume 95.1 fL (80-100) Mean Corpuscular Hemoglobin 31.4 pg (25-34) Mean Corpuscular Hemoglobin Concent 33.1 g/dl (32-36) Platelet Count 290 K/uL (130-400) Mean Platelet Volume 8.7 fL (7.4-10.4) Neutrophils (%) (Auto) 68.2 % Lymphocytes (%) (Auto) 20.3 % Monocytes (%) (Auto) 8.4 % Eosinophils (%) (Auto) 2.6 % Basophils (%) (Auto) 0.1 % Neutrophils # (Auto) 4.81 K/uL (1.4-6.5) Lymphocytes # (Auto) 1.43 K/uL (1.2-3.4) Monocytes # (Auto) 0.59 K/uL (0.11-0.59) Eosinophils # (Auto) 0.18 K/uL (0-0.5) Basophils # (Auto) 0.01 K/uL (0-0.2) RDW Standard Deviation 47.6 fL (36.4-46.3) RDW Coefficient of Variation 13.8 % (11.5-14.5) Immature Granulocyte % (Auto) 0.4 % Immature Granulocyte # (Auto) 0.03 K/uL (0.00-0.02) Urine Color YELLOW Urine Appearance CLEAR (CLEAR) Urine pH 7.0 (4.5-7.5) Urine Specific [place] 1.032 (1.000-1.030) Urine Protein NEG (NEG) Urine Glucose (UA) NEG (NEG) Urine Ketones TRACE (NEG) Urine Occult Blood NEG (NEG) Urine Nitrite NEG (NEG) Urine Bilirubin NEG (NEG) Urine Urobilinogen NEG (NEG) Urine Leukocyte Esterase MODERATE (NEG) Urine WBC (Auto) >30 /hpf (0-5) Urine RBC (Auto) 5-10 /hpf (0-4) Urine Hyaline Casts (Auto) 10-30 /lpf (0-5) Urine Epithelial Cells (Auto) >30 /lpf (0-5) Urine Bacteria (Auto) NEG (NEG) Urine Test NEG (NEG) Anion Gap 7.0 mmol/L (3-11) Est Creatinine Clear Calc Drug Dose 64.4 ml/min Estimated GFR () 90.8 Estimated GFR (Non- 78.4 BUN/Creatinine Ratio 17.4 (10-20) Calcium Level 8.8 mg/dl (8.5-10.1) Total Bilirubin 0.2 mg/dl (0.2-1) Direct Bilirubin < 0.1 mg/dl (0-0.2) Aspartate Amino Transf (AST/SGOT) 18 U/L (15-37) Alanine Aminotransferase (ALT/SGPT) 24 U/L (12-78) Alkaline Phosphatase 83 U/L (45-117) Total Protein 7.9 gm/dl (6.4-8.2) Albumin 3.5 gm/dl (3.4-5.0) Lipase 127 U/L (73-393) Influenza Type A Antigen Neg for Influ A (NEG) Influenza Type B Antigen Neg for Influ B (NEG) Laboratory results per my review. Medications Administered Medications (Trade) Dose Ordered Sig/Joycelyn Route Start Time Stop Time Status Last Admin Dose Admin Sodium Chloride (Nss 1000ml) 1,000 ml @ 999 mls/hr Q1H1M STAT IV 07/08/16 01:16 07/08/16 02:16 DC 07/08/16 01:25 999 MLS/HR Ketorolac Tromethamine (Toradol Inj) 30 mg NOW STAT IV 07/08/16 01:16 07/08/16 01:17 DC 07/08/16 01:25 30 MG ED Course ED COURSE: Vital signs were reviewed and showed tachycardia The patients medical record was reviewed The above diagnostic studies were performed and reviewed. ED treatments and interventions as stated above. 2359: The patient was evaluated in room C10. A complete history and physical examination was performed. 0116: Toradol Inj 30mg IV, Sodium Chloride 1000 ml @ 999 mls/hr IV 0216: Upon reevaluation, the patient is resting.I discussed my findings with the patient and she understands and agrees with the treatment plan. Based on the patients age, coexisting illnesses, exam and lab findings the decision to treat as an outpatient was made. The patient remained stable while under my care. The patient appeared well at the time of discharge. Medical Decision Differential diagnoses includes but is not limited to pneumonia, bronchitis, COPD/Asthma exacerbation, pneumothorax, pulmonary embolism, congestive heart failure, acute coronary syndrome Patient is a 40-year-old female who presents to the ER for productive cough associated with congestion, myalgias and fevers. She notes that this is been present for the past 24 hours. She also complains of some left-sided abdominal pain and flank pain. She notes that this is been present but same time. Chest x-ray shows no focal infiltrate. Labs show no significant leukocytosis or anemia. BMP along with LFTs, bilirubin and lipase was normal. CT of her abdomen shows no stone. UA was contaminated with multiple epithelial cells. was negative. Based on her symptoms and do believe that she likely has a viral URI. She has no wheezing consequently was given no steroids were no treatments. Discussed with Pt concerning signs and symptoms to watch out for. Pt was instructed to follow up with their PCP and discussed with the patient their option to return to the ED at anytime for persistent or worsening symptoms. The appropriate anticipatory guidance and out-patient management, including indications for return to the emergency department, were explained at length to the patient and understood. Impression Primary Impression: Bronchitis Scribe Attestation The scribe's documentation has been prepared under my direction and personally reviewed by me in its entirety. I confirm that the note above accurately reflects all work, treatment, procedures, and medical decision making performed by me. Departure Information Dispostion Home / Self-Care Prescriptions Benzonatate (TESSALON PERLES) 100 Mg Cap 100 MG PO TID, #30 CAP Prov: Saul Perez, 07/08/16 Referrals Deedee Bhatt D.O. (PCP) Forms HOME CARE DOCUMENTATION FORM, IMPORTANT VISIT INFORMATION, WORK / SCHOOL INSTRUCTIONS Patient Instructions ED Bronchitis Viral, My [facility] Additional Instructions Please follow up with your primary care doctor with in the next 24 hours. Any worsening of your symptoms, please return to the ED immediately. This includes fevers greater than 100.4 for 2-3 days, worsening shortness of breath, passing out, chest pain, or any other concerning signs or symptoms from your standpoint. Please take Motrin or Tylenol as needed for fevers.
[2016-07-08] MEDS ORDERED: BENZ100C18 PO (02:11)
[2016-07-08 02:22] VITALS: BP 128/71; PULSE 76; O2SAT 98
--- NOTE | 2016-07-08 07:35 | DIAGNOSTIC IMAGING REPORT ---
ABDOMEN AND PELVIS CT WITHOUT CONTRAST CT DOSE: 271.59 mGy.cm HISTORY: Left flank pain. TECHNIQUE: Multiaxial CT images of the abdomen and pelvis were performed without contrast. COMPARISON STUDY: Abdomen and pelvis CT 04/01/2016. FINDINGS: The lung bases are clear. No fractures. Mild intra and extra hepatic bile duct dilatation remains unchanged. No hepatic or splenic masses. The pancreas and gallbladder are unremarkable. Normal kidneys. No renal stones or hydronephrosis. No definite bowel wall thickening or obstruction. The uterus appears surgically absent. IMPRESSION: No renal stones or hydronephrosis. Stable mild bile duct dilatation. Electronically signed by: Willian Stallworth M.D. 07/08/2016 7:33 AM Dictated Date/Time: 07/08/2016 7:28 AM
--- NOTE | 2016-07-08 08:06 | DIAGNOSTIC IMAGING REPORT ---
CHEST 2 VIEWS ROUTINE HISTORY: cough COMPARISON: Chest 06/29/2016. FINDINGS: The lungs are clear. Cardiac silhouette is normal in size. No pleural effusions. No pneumothorax. IMPRESSION: No acute process. Electronically signed by: Willian Stallworth M.D. 07/08/2016 8:04 AM Dictated Date/Time: 07/08/2016 8:03 AM
== END 2016-07-08 02:23 | disposition home or self-care (01) ==
LOC: C.EDB 23:42 → C.EDC 07-08 02:23
DX: J40 Bronchitis, not specified as acute or chronic (principal); F17.210 Nicotine dependence, cigarettes, uncomplicated; R10.30 Lower abdominal pain, unspecified; I10 Essential (primary) hypertension; Z90.710 Acquired absence of both cervix and uterus; Z80.9 Family history of malignant neoplasm, unspecified; Z79.899 Other long term (current) drug therapy

== ENCOUNTER 2016-08-13 23:48 | Emergency (ER) | payer OTHER ==
[~2016-08-13] VITALS: Ht 157.5 cm; Wt 58.3 kg
[2016-08-13 23:53] VITALS: TEMP 36.9; Ht 157.5 cm; Wt 58.3 kg
[2016-08-14] MEDS ORDERED: ACETAMINOPHEN 500 MG TAB PO STA (00:09)
[2016-08-14 01:35] VITALS: BP 127/80; PULSE 83; O2SAT 99
--- NOTE | 2016-08-14 03:16 | EMERGENCY ROOM VISIT NOTE ---
History First contact with patient: 23:57 Chief Complaint: SHOULDER PAIN Stated Complaint: UPPER RIGHT SHOULDER, RIGHT RIB CAGE, HEADACHE History of Present Illness The patient is a 41 year old female who presents to the Emergency Room with complaints of right shoulder right lateral chest wall pain after she tripped and fell landing on her right side yesterday. She describes the pain as aching , ranging in severity 7 out of 10 worse with movement and better with rest. No prior fracture to these areas. Patient continues to smoke. She has lung nodules and follows a pulmonology [place]. Patient denies dyspnea, fever, chills, neck pain, neck stiffness, back pain, abdominal pain, numbness, tingling , leg pain, arm pain or any other medical complaints. No prior fractures to this area. Review of Systems See HPI for pertinent positives & negatives. A total of 10 systems reviewed and were otherwise negative. Past Medical/Surgical History Medical Problems: (1) ASTHMA, UNSPECIFIED (2) Hypertension Nos (3) Sarcoidosis (4) Tobacco Use Disorder Surgical Problems: (1) History of hysterectomy Family History Cancer Kidney disease Kidney stones Social History Smoking Status: Current Every Day Smoker Alcohol Use: none Drug Use: none Marital Status: in relationship Housing Status: lives with family Occupation Status: employed Current/Historical Medications No Active Prescriptions or Reported Meds Allergies Coded Allergies: Morphine (Verified Allergy, Unknown, rash, 08/14/16) Physical Exam Vital Signs Date Time Temp Pulse Resp B/P Pulse Ox O2 Delivery O2 Flow Rate FiO2 08/14/16 01:35 83 16 127/80 99 08/13/16 23:53 36.9 89 18 143/93 99 Room Air Pain Rating (0-10): 2.0 Physical Exam PHYSICAL EXAM: VITALS: Vitals are noted on the nurse's note and reviewed by myself. Vital signs stable. GENERAL: Pleasant female, in no acute distress, nondiaphoretic, well-developed well-nourished. SKIN: The skin was without obvious lacerations or abrasions. Capillary reflex less than 2 seconds. HEAD: Normocephalic atraumatic. EARS: External auditory canals clear, tympanic membranes pearly carty without erythema or effusion bilaterally. No hemotympanums. No vera sign. No mastoid tenderness. EYES: Pupils equal round and reactive to light and accommodation. Conjunctivae without injection, sclerae without icterus. Extraocular movements intact. NOSE: Patent, turbinates without inflammation or discharge. No sinus tenderness. No septal hematoma or bleeding. FACE: No facial bone tenderness. Full range of motion of the jaw without tenderness. MOUTH: Mucous membranes moist. Pharynx without erythema or exudate. Uvula midline. Airway patent. Tongue does not deviate. NECK: Supple without nuchal rigidity. Cervical spine is nontender. Full range of motion of the neck without tenderness. No JVD. HEART: Regular rate and rhythm without murmurs gallops or rubs. Right lateral chest tender to palpation easily reproducing symptoms with no deformity LUNGS: Clear to auscultation bilaterally without wheezes, rales or rhonchi. No dullness to percussion. No retractions or accessory muscle use. ABDOMEN: Positive bowel sounds x 4. Normal tympanic percussion. Soft, nontender, without masses or organomegaly. No guarding or rebound tenderness. MUSCULOSKELETAL: No tenderness of the thoracic or lumbar spine. Right shoulder tender to palpation with increased pain with range of motion. No clavicular tenderness. Full range of motion without tenderness to palpation in all other extremities. Normal gait. Strength 5/5 throughout. Peripheral pulses 2+. NEURO: Patient was alert and oriented to person place and time. Normal sensation to light and sharp touch. Cerebellar function intact. No focal neurological deficits. Medical Decision & Procedures Medications Administered Medications (Trade) Dose Ordered Sig/[facility] Route Start Time Stop Time Status Last Admin Dose Admin Acetaminophen (Tylenol Tab) 1,000 mg NOW STAT PO 08/14/16 00:09 08/14/16 00:11 DC 08/14/16 00:16 1,000 MG ED Course Prior records/ancillary studies reviewed. Triage Nursing notes reviewed. Additional history obtained from family. The patient's history was concerning for traumatic injury Differential diagnosis: Etiologies such as fracture, dislocation, intra-abdominal, pneumothorax, intrathoracic , intracranial, neurologic, as well as other traumatic pathologies were entertained. Physical examination findings: As above. The patients vitals were able. ER treatment provided: Incentive spirometry On reassessment the patient felt better. Vital signs were stable. Diagnostic interpretation by me: Imaging studies: Shoulder x-ray with no acute fracture, effusion or dislocation per my interpretation. CT of the chest was read by stat radiology as no fracture. Pulmonary nodules. This appears to be consistent with fall with muscular injuries without fracture. 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 Patient was also given information on lung nodule clinic also. She is advised follow- up. She was strongly encouraged to quit smoking. She is advised to incentive spirometry for the next 2 weeks and take anti-inflammatories for her pain. She is advised to return to the ER immediately for chest pain, difficulty breathing , fevers, numbness, tingling, worsening signs or symptoms or as needed. She is advised follow-up family care in a few days. She is advised to stretch the area out.. By the evaluation outlined above emergent etiologies such as fracture, dislocation, intra-abdominal, pneumothorax, pulmonary contusion, hemothorax, intracranial, neurologic,as well as others were deemed relatively unlikely. The pt informed about the findings as listed above. All questions were answered and pleased with the treatment. Return instructions were outlined and the patient was discharged in stable condition. Referral: The patient was referred to family for follow-up in 2 to 3 days for a recheck of the current condition. Case reviewed with my attending Medical Decision As above Impression Primary Impression: Right shoulder injury Additional Impressions: Pulmonary nodules Right-sided chest wall pain Fall Departure Information Dispostion Home / Self-Care Condition GOOD Prescriptions No Active Prescriptions or Reported Meds Forms HOME CARE DOCUMENTATION FORM, IMPORTANT VISIT INFORMATION Patient Instructions My [facility], ED Contusion Chest Wall Additional Instructions Incentive spirometry 10 times an hour for the next 2 weeks. Ibuprofen(Motrin, Advil) may be used for fever or pain. Use 600mg every six hours as needed. Take with food. Avoid using more than 2400mg in a 24 hour period. Do not use 2400mg per day for more than three consecutive days without physician direction. Prolonged inappropriate use can lead to stomach upset or ulcers. (AND/OR) Acetaminophen(Tylenol) may be used for fever or pain. Use 1000mg every six hours as needed. Avoid using more than 3000mg in a 24 hour period. Rest and drink plenty of fluids as tolerated. Continue current medications. Avoid strenuous activities and anything that worsens your pain. Resume normal activities once your symptoms resolve. Return to the ER immediately for worsening or persistent chest pain, abdominal pain, vomiting, fevers, chest pains, difficulty breathing, worsening of your condition, or as needed. Follow up with your primary physician in 2-3 days for a recheck of your current condition. Problem Qualifiers Primary Impression: Right shoulder injury Encounter type: initial encounter Qualified Codes: S49.91XA - Unspecified injury of right shoulder and upper arm, initial encounter
--- NOTE | 2016-08-14 07:00 | DIAGNOSTIC IMAGING REPORT ---
CT OF THE CHEST WITHOUT IV CONTRAST CLINICAL HISTORY: Right-sided chest pain. Trauma. COMPARISON STUDY: 03/07/2012 CT DOSE: 179.47 mGy.cm TECHNIQUE: CT of the thorax was performed from the thoracic inlet to the lung bases. Images are reviewed in the axial, sagittal, and coronal planes. IV contrast was not administered for this examination. FINDINGS: Thyroid: There is a left lobe thyroid calcification. This remains unchanged from the preceding study. Thoracic aorta: The thoracic aorta is normal in course and caliber, noting standard 3 vessel arch anatomy. Heart: The heart is normal in size and configuration, without pericardial effusion. Lungs and pleural spaces: There are no pleural effusions. There is no evidence of pneumothorax. There is pulmonary emphysema. There are multiple bilateral subcentimeter pulmonary nodules. There is also a pleural-based nodule/plaque within the right middle lobe measuring 13 x 4 mm. This has slowly increased in size when compared the prior September 2011 study. The slow growth rate strongly favors a benign process. The largest nodules on the left are a 5 mm solid left lower lobe pulmonary nodule as visualized in image #[id number], as well as a 4 mm left apical pulmonary nodule as visualized in image #[id number]. The nodules are new/enlarging when compared the prior September 2011 study. Mediastinum: Mediastinal lymph nodes are the upper limits of normal in size. Brigitte: There is no evidence of pathologic hilar adenopathy given the limitations of a noncontrast study Axilla: There is mild bilateral axillary lymphadenopathy Upper abdomen: There is mild biliary ductal dilatation Skeletal structures: There are no lytic or blastic osseous lesions. IMPRESSION: 1. No evidence of acute intrathoracic injury 2. Mild axial lymphadenopathy 3. Multiple bilateral solid subcentimeter pulmonary nodules. These include a 13 x 4 mm subpleural nodule/plaque within the right middle lobe. 12 month follow-up would seem appropriate. Electronically signed by: Rico De La Cruz M.D. 08/14/2016 6:59 AM Dictated Date/Time: 08/14/2016 6:45 AM
--- NOTE | 2016-08-14 07:03 | DIAGNOSTIC IMAGING REPORT ---
RIGHT SHOULDER MIN 2 VIEWS ROUTINE CLINICAL HISTORY: Right shoulder pain status post trauma COMPARISON: Chest x-ray dated 07/08/2016, and 04/01/2012 DISCUSSION: No fractures or dislocations are visualized. There are no visible periarticular calcifications. There is a 5 mm nodule within the right midlung zone. This appears to have been present in March 2012 favoring a postinflammatory density IMPRESSION: No acute fractures or dislocations identified. Electronically signed by: Rico De La Cruz M.D. 08/14/2016 7:02 AM Dictated Date/Time: 08/14/2016 7:00 AM
== END 2016-08-14 01:36 | disposition home or self-care (01) ==
LOC: C.EDB 23:50 → C.EDC 08-14 01:36
DX: S49.91XA Unspecified injury of right shoulder and upper arm, initial encounter (principal); W18.09XA Striking against other object with subsequent fall, initial encounter; R91.8 Other nonspecific abnormal finding of lung field; R07.89 Other chest pain; F17.210 Nicotine dependence, cigarettes, uncomplicated; J45.909 Unspecified asthma, uncomplicated; I10 Essential (primary) hypertension; Z90.710 Acquired absence of both cervix and uterus; Z80.9 Family history of malignant neoplasm, unspecified; Z84.1 Family history of disorders of kidney and ureter

== ENCOUNTER 2016-09-10 02:18 | Emergency (ER) | payer OTHER ==
[~2016-09-10] VITALS: Ht 157.5 cm; Wt 59.5 kg
[2016-09-10 02:21] VITALS: TEMP 37.1; Ht 157.5 cm; Wt 59.5 kg
--- NOTE | 2016-09-10 03:22 | EMERGENCY ROOM VISIT NOTE ---
ED Visit Note First contact with patient: 02:26 CHIEF COMPLAINT: Ankle pain HISTORY OF PRESENT ILLNESS: This 41 yo patient presents to the emergency department with family after sustaining an injury to the left ankle and foot with a twisting, inversion motion after dancing. The patient complains of pain along the outside of the ankle. The patient denies pain of the foot. The patient rates the pain as throbbing and 6/10. The patient is not able to bear weight on the foot. Constant pain, worse with movement, weight bearing, and the dependent position. No knee pain, the patient is able to move their toes. No numbness or weakness of the foot, no laceration. The patient has not had a previous fracture to this ankle. The patient has taken nothing for the pain. The patient denies any other injury. REVIEW OF SYSTEMS: A 6 system review of systems was completed with positives and pertinent negatives listed in the HPI. ALLERGIES: Morphine MEDICATIONS: Reviewed PMH: Reviewed SOCIAL HISTORY: No drug use PHYSICAL EXAM: Vital Signs: Reviewed Nurse's notes, vital signs hypertensive. GENERAL: pleasant female, no acute distress, but appears in pain, well- developed, well-nourished. MENTAL STATUS: Alert, oriented to person place and time, and cooperative. MUSCULOSKELETAL: The left ankle is swollen and tender over the lateral malleolus, but the skin is intact and there is no ligamentous instability. There is no fifth metatarsal tenderness. There is no tenderness over the rest of the foot. There is no calf or tibia/fibular tenderness. There is no visual deformity. The foot and toes are warm and well-perfused. Dorsalis pedis pulse 2+. Sensation to pain and light touch is intact. Capillary refill less than 2 seconds. EMERGENCY DEPARTMENT COURSE: I examined the patient. Ice pack was applied. Patient declined pain meds. X-rays of the left ankle were reviewed by myself and attending and reveal no fracture. AirGel splint was applied to the ankle under my direction and the position was satisfactory. Neurovascular status was rechecked and intact. The patient was instructed on the use of crutches. Repeat blood pressure was improved. Patient was counseled on her blood pressure. The patient was discharged home in good condition. Differential diagnoses include sprain, strain, fracture, dislocation and other etiologies were considered. DIAGNOSIS: #1 left ankle sprain, initial evaluation DISCHARGE INSTRUCTIONS: DO NOT drive, drink alcohol, operate machinery, or perform dangerous activities today. You were given medications in the ER that can affect your ability to safely function or operate a vehicle. Monitor your blood pressure. Oxycodone (OxyIR) 5mg: Take 1-2 pills every four hours for breakthrough pain. Avoid alcohol, operating machinery or dangerous equipment, working on ladders or roofs, DRIVING, or situations where being under the influence may be dangerous. It is recommended to use an [id number] stool softener such as Colace, 100mg twice daily while taking this medication to avoid constipation. Ibuprofen(Motrin, Advil) may be used for fever or pain. Use 600mg every six hours as needed. Take with food. Avoid using more than 2400mg in a 24 hour period. Do not use 2400mg per day for more than three consecutive days without physician direction. Prolonged inappropriate use can lead to stomach upset or ulcers. This medication can be taken if you need to drive, work, or perform activities which may be dangerous when taking narcotic pain medication. (AND/OR) Acetaminophen(Tylenol) may be used for fever or pain. Use 1000mg every six hours as needed. Avoid using more than 3000mg in a 24 hour period. This medication can be taken if you need to drive, work, or perform activities which may be dangerous when taking narcotic pain medication. Ice compresses for 20 minutes at a time four times daily for 2-3 days. Use the crutches as instructed. Rest and elevate your injury. Wear ankle splint until pain subsides. Do not have it so tight that you cannot feel your foot. Continue current medications. Return to the ER immediately for any numbness, tingling, severe pain, extreme swelling in the extremity or as needed. Call Orthopedics in 3-5 days if symptoms persist tomorrow to arrange follow up for your injury. Problem List Medical Problems: (1) ASTHMA, UNSPECIFIED Status: Chronic Current/Historical Medications No Active Prescriptions or Reported Meds Allergies Coded Allergies: Morphine (Verified Allergy, Unknown, rash, 09/10/16) Vital Signs Date Time Temp Pulse Resp B/P (MAP) Pulse Ox O2 Delivery O2 Flow Rate FiO2 09/10/16 02:21 37.1 119 20 162/106 99 Room Air Departure Information Prescriptions No Active Prescriptions or Reported Meds Referrals No Doctor, Assigned (PCP) Patient Instructions My [facility]
[2016-09-10] MEDS ORDERED: OXYCODONE IR HOME PACK PO ONE (03:30)
[2016-09-10 03:37] VITALS: BP 149/119; PULSE 78; O2SAT 98
--- NOTE | 2016-09-10 07:23 | DIAGNOSTIC IMAGING REPORT ---
LEFT ANKLE 3 VIEWS CLINICAL HISTORY: Fall with left ankle pain. FINDINGS: 3 portable views of the left ankle are obtained. Correlation is made with radiographs of the left tibia and fibula dated 10/28/2010. The skeletal structures are well mineralized. No fracture is seen. The ankle mortise is intact. There is no joint effusion. The overlying soft tissues are normal as visualized. IMPRESSION: No acute bony abnormality is seen in the left ankle. Electronically signed by: Neville Youssef M.D. 09/10/2016 7:21 AM Dictated Date/Time: 09/10/2016 7:20 AM
[2016-09-11] MEDS ORDERED: VNTHFA/IN INH (00:31)
[2016-09-11] MEDS ORDERED: b/p med PO (00:31)
== END 2016-09-10 03:39 | disposition home or self-care (01) ==
LOC: C.EDB 02:19 → C.EDA 03:39
DX: S93.402A Sprain of unspecified ligament of left ankle, initial encounter (principal); X50.9XXA Other and unspecified overexertion or strenuous movements or postures, initial encounter; Y93.41 Activity, dancing; J45.909 Unspecified asthma, uncomplicated

== ENCOUNTER 2016-09-11 00:13 | Emergency (ER) | payer OTHER ==
[~2016-09-11] VITALS: Ht 157.5 cm; Wt 60.0 kg
[2016-09-11 00:18] VITALS: TEMP 37.2; Ht 157.5 cm; Wt 60.0 kg
[2016-09-11] MEDS ORDERED: b/p med PO (00:31)
[2016-09-11] MEDS ORDERED: VNTHFA/IN INH (00:31)
[2016-09-11] MEDS ORDERED: LORAZEPAM 2 MG/ML 1 ML VIAL ONE (00:39)
[2016-09-11] MEDS ORDERED: SODIUM CHLORIDE 0.9% 1000ML 1,000 ML IV STA (00:43)
[2016-09-11 00:51] LABS: COMPLETE YES; EOS % 1.5 %; HEMATOCRIT 40.1 % (37-47); IG% 0.2 %; LYMPH % 37.1 %; LYMPH ABS # 1.52 K/uL (1.2-3.4); MEAN CELL VOLUME 94.4 fL (80-100); MEAN CORPUSCULAR HEMOGLOBIN 32.5 pg (25-34); MEAN CORPUSCULAR HGB CONC 34.4 g/dl (32-36); MEAN PLATELET VOLUME 9.1 fL (7.4-10.4); MONO % 11.5 %; NEUT % 49.7 %; PLATELET COUNT 239 K/uL (130-400); RED BLOOD COUNT 4.25 M/uL (4.2-5.4)
[2016-09-11 01:08] LABS: ALT/SGPT 28 U/L (12-78); BLOOD UREA NITROGEN 10 mg/dl (7-18); BUN/CREATININE RATIO 10.9 (10-20); CALCIUM 9.1 mg/dl (8.5-10.1); CARBON DIOXIDE 21 mmol/L (21-32); CHLORIDE 107 mmol/L (98-107); CREATININE 0.94 mg/dl (0.60-1.20); GLUCOSE 83 mg/dl (70-99); POTASSIUM 3.5 mmol/L (3.5-5.1); SODIUM 141 mmol/L (136-145)
[2016-09-11 01:13] LABS: ALKALINE PHOSPHATASE 100 U/L (45-117); AST/SGOT 28 U/L (15-37)
[2016-09-11 01:21] LABS: URINE APPEARANCE CLEAR (CLEAR); URINE BILIRUBIN NEG (NEG); URINE COLOR YELLOW; URINE NITRITE NEG (NEG); URINE PH 5.5 (4.5-7.5); URINE SPECIFIC GRAVITY 1.015 (1.000-1.030); UROBILINOGEN NEG (NEG); ZZUR CULT IF INDIC CLEAN CATCH NO
[2016-09-11 01:22] LABS: MANUAL MICROSCOPIC REQUIRED? NO; REVIEW REQ? NO
[2016-09-11 01:51] LABS: BENZODIAZEPINE, URINE POS (NEG); COCAINE,URINE POS (NEG); PHENCYCLIDINE, URINE NEG (NEG)
--- NOTE | 2016-09-11 03:12 | EMERGENCY ROOM VISIT NOTE ---
History Report prepared by Chrissy: David Fernandez Under the Supervision of: Dr. Vin Ferris M.D. First contact with patient: 00:38 Chief Complaint: SEIZURE Stated Complaint: SEIZURE Nursing Triage Summary: pt was visiting her sister. pt was sitting on side of bed and had seizure like activity per family. lasted approx 10 minutes. pt was post ictal when EMS arrived. pt bit her R upper lip but denies other pain or injury. pt does not remember incident. no seizure history. seen here yesterday for ankle sprain and taking oxycodone as ordered. History of Present Illness The patient is a 41 year old female who presents to the Emergency Room by EMS with complaints of an episode of seizure-like activity occurring shortly prior to arrival. She denies any headaches, fevers, or neck pain.. She bit her lip during the episode. The patient has had one seizure before in her life occurring "several" years ago. She was seen in the ED yesterday for ankle pain. She denies any recent drug or alcohol use, but states that she took Oxycodone yesterday for her ankle pain. The patient denies any chance of . She appears to have been post ictal upon arrival per EMS. Per sister, the patient's experienced Grand Mal-like seizure activity. She states that the patient was foaming at the mouth and convulsing. She estimates that the episode lasted for 10 minutes. Source of History: patient, family (sister) Onset: shortly prior to arrival Symptom Intensity: 10 minutes long Quality: other (seizure-like activity) Timing: other (episode) Associated Symptoms: No fevers, No headache, No neck pain Review of Systems See HPI for pertinent positives & negatives. A total of 10 systems reviewed and were otherwise negative. Past Medical & Surgical Medical Problems: (1) ASTHMA, UNSPECIFIED (2) Hypertension Nos (3) Sarcoidosis (4) Tobacco Use Disorder Surgical Problems: (1) History of hysterectomy Family History Cancer Kidney disease Kidney stones Social History Smoking Status: Current Every Day Smoker Alcohol Use: none Drug Use: none Marital Status: in relationship Housing Status: lives with family Occupation Status: employed Current/Historical Medications Scheduled [b/p med], Unknown Dose PO DAILY Scheduled PRN Albuterol Hfa (Ventolin Hfa), 2-4 PUFFS INH DIRECTED PRN for Shortness of Breath Allergies Coded Allergies: Oxycodone (Verified Allergy, Severe, seizure activity, 09/11/16) Morphine (Verified Allergy, Unknown, rash, 09/11/16) Physical Exam Vital Signs Date Time Temp Pulse Resp B/P (MAP) Pulse Ox O2 Delivery O2 Flow Rate FiO2 09/11/16 03:26 91 21 123/85 95 09/11/16 02:01 88 21 158/111 99 Room Air 09/11/16 01:10 112 23 169/123 98 Room Air 09/11/16 00:44 101 14 173/124 98 Room Air 09/11/16 00:23 102 09/11/16 00:18 37.2 104 15 165/124 97 Room Air Physical Exam GENERAL: Patient is severely anxious appearing, crying, upset. HEENT: No acute trauma, normocephalic atraumatic, mucous membranes moist, no nasal congestion, no scleral icterus. NECK: No stridor, no adenopathy, no meningismus, trachea is midline. LUNGS: No dyspnea. Clear to auscultation and equal bilaterally. No wheeze, no rhonchi. HEART: Tachycardic rate with a regular rhythm. No murmurs, rubs, gallops appreciated. ABDOMEN: Soft, nontender, bowel sounds positive, no masses appreciated, no peritonitis. BACK: No midline tenderness, no CVA tenderness EXTREMITIES: Normal motion all extremities, no cyanosis, no edema. NEUROLOGIC: Alert and oriented, no acute motor or sensory deficits, no focal weakness, cranial nerves grossly intact. SKIN: No rash, no jaundice, no diaphoresis. Medical Decision & Procedures ER Provider Diagnostic Interpretation: CT results per statrad and my review. CT HEAD: Comparison: CT head 06/27/12. No ICH, mass effect or edema. -white matter differentiation appears preserved. No skull fracture. Mucosal thickening in the sphenoid sinus. Clear mastoid air cells. X ray results are stated below per my interpretation: Chest: 1 view: No infiltrate, no effusion, normal cardiac border. Laboratory Results 09/11/16 00:30 Red Blood Count 4.25, Mean Corpuscular Volume 94.4, Mean Corpuscular Hemoglobin 32.5, Mean Corpuscular Hemoglobin Concent 34.4, Mean Platelet Volume 9.1, Neutrophils (%) (Auto) 49.7, Lymphocytes (%) (Auto) 37.1, Monocytes (%) (Auto) 11.5, Eosinophils (%) (Auto) 1.5, Basophils (%) (Auto) 0.0, Neutrophils # (Auto ) 2.04, Lymphocytes # (Auto) 1.52, Monocytes # (Auto) 0.47, Eosinophils # (Auto ) 0.06, Basophils # (Auto) 0.00 09/11/16 00:30 Test 09/11/16 00:30 09/11/16 01:05 09/11/16 01:35 White Blood Count 4.10 K/uL (4.8-10.8) Red Blood Count 4.25 M/uL (4.2-5.4) Hemoglobin 13.8 g/dL (12.0-16.0) Hematocrit 40.1 % (37-47) Mean Corpuscular Volume 94.4 fL (80-100) Mean Corpuscular Hemoglobin 32.5 pg (25-34) Mean Corpuscular Hemoglobin Concent 34.4 g/dl (32-36) Platelet Count 239 K/uL (130-400) Mean Platelet Volume 9.1 fL (7.4-10.4) Neutrophils (%) (Auto) 49.7 % Lymphocytes (%) (Auto) 37.1 % Monocytes (%) (Auto) 11.5 % Eosinophils (%) (Auto) 1.5 % Basophils (%) (Auto) 0.0 % Neutrophils # (Auto) 2.04 K/uL (1.4-6.5) Lymphocytes # (Auto) 1.52 K/uL (1.2-3.4) Monocytes # (Auto) 0.47 K/uL (0.11-0.59) Eosinophils # (Auto) 0.06 K/uL (0-0.5) Basophils # (Auto) 0.00 K/uL (0-0.2) RDW Standard Deviation 47.6 fL (36.4-46.3) RDW Coefficient of Variation 13.8 % (11.5-14.5) Immature Granulocyte % (Auto) 0.2 % Immature Granulocyte # (Auto) 0.01 K/uL (0.00-0.02) Anion Gap 13.0 mmol/L (3-11) Est Creatinine Clear Calc Drug Dose 61.7 ml/min Estimated GFR () 86.7 Estimated GFR (Non- 74.8 BUN/Creatinine Ratio 10.9 (10-20) Calcium Level 9.1 mg/dl (8.5-10.1) Total Bilirubin 0.4 mg/dl (0.2-1) Direct Bilirubin 0.1 mg/dl (0-0.2) Aspartate Amino Transf (AST/SGOT) 28 U/L (15-37) Alanine Aminotransferase (ALT/SGPT) 28 U/L (12-78) Alkaline Phosphatase 100 U/L (45-117) Troponin I < 0.015 ng/ml (0-0.045) Total Protein 8.6 gm/dl (6.4-8.2) Albumin 3.8 gm/dl (3.4-5.0) Urine Color YELLOW Urine Appearance CLEAR (CLEAR) Urine pH 5.5 (4.5-7.5) Urine Specific Roe 1.015 (1.000-1.030) Urine Protein NEG (NEG) Urine Glucose (UA) NEG (NEG) Urine Ketones NEG (NEG) Urine Occult Blood NEG (NEG) Urine Nitrite NEG (NEG) Urine Bilirubin NEG (NEG) Urine Urobilinogen NEG (NEG) Urine Leukocyte Esterase NEG (NEG) Urine WBC (Auto) 1-5 /hpf (0-5) Urine RBC (Auto) 0-4 /hpf (0-4) Urine Hyaline Casts (Auto) 0 /lpf (0-5) Urine Epithelial Cells (Auto) 10-20 /lpf (0-5) Urine Bacteria (Auto) NEG (NEG) Urine Opiates Screen POS (NEG) Urine Methadone, Qualitative NEG (NEG) Urine Barbiturates NEG (NEG) Urine Phencyclidine (PCP) Level NEG (NEG) Ur Amphetamine/Methamphetamine NEG (NEG) MDMA (Ecstasy) Screen POS (NEG) Urine Benzodiazepines Screen POS (NEG) Urine Cocaine Metabolite POS (NEG) Urine Marijuana (THC) NEG (NEG) Ethyl Alcohol mg/dL < 3.0 mg/dl (0-3) Laboratory results as reviewed by me. Medications Administered Medications (Trade) Dose Ordered Sig/Joycelyn Route Start Time Stop Time Status Last Admin Dose Admin Lorazepam (Ativan Inj) 2 mg STK-MED ONCE .ROUTE 09/11/16 00:39 09/11/16 00:40 DC 09/11/16 00:44 2 MG Sodium Chloride 1,000 ml @ 999 mls/hr Q1H1M STAT IV 09/11/16 00:43 09/11/16 01:43 DC 09/11/16 00:50 999 MLS/HR ECG Indication: other (seizure-like activity) Rate (beats per minute): 102 Rhythm: sinus tachycardia Findings: Q waves (Septal), no acute ischemic change, no ectopy, other (QTC 440. ) ED Course 0038: The patient was evaluated in room B11B. A complete history and physical exam was performed. 0039: Ordered Ativan Inj 2 mg IV. 0043: Ordered Sodium Chloride 1000 ml @ 999 mls/hr. 0102: I reassessed the patient. She is much calmer, and is breathing comfortably on room air. 0200: I checked in on the patient. She has had no further seizures and feels better. She is mildly hypertensive with no temperature. 0315: Reevaluated the patient. Discussed results and discharge instructions: she verbalized understanding and agreement. The patient is ready for discharge. Medical Decision Differential: Sepsis, Infectious (UTI/Pneumonia/Meningitis/etc), Metabolic/ Electrolyte Abnormality, Cardiac, Hepatic, Endocrine, Toxicologic, Neurologic, amongst other pathologies entertained. 41 yr old female arrives following seizure which witnessed by sister lasted roughly 10 minutes. She is quite upset and crying on arrival. No seizure activity on arrival though given how upset she was and recent seizure felt ativan reasonable. Labs unremarkable. CT head negative. Drug Urine with multiple drugs which are explainable other than Cocaine though she denies cocaine use. Both Wellbutrin and Oxy with increased risk seizures. Have advised stopping both and both recently started. Call PCP in AM. No further seizures and looking well. Reviewed no driving til cleared by Neurology/PCP. Reviewed RTED symptoms. She has no evidence of sepsis, infection, encephalopathy, cardiac cause, dissection, nor other acute findings. No neuro deficits and with negative CT head I feel that bringing in for MRI not indicated. Impression Primary Impression: Seizure Scribe Attestation The scribe's documentation has been prepared under my direction and personally reviewed by me in its entirety. I confirm that the note above accurately reflects all work, treatment, procedures, and medical decision making performed by me. Departure Information Dispostion Home / Self-Care Referrals Deedee Bhatt D.O. (PCP) Sandy James D.O. Patient Instructions ED Seizure New Onset Unk Cause, My [facility] Additional Instructions Please stop your Wellbutrin and any further narcotic (Oxy IR) pain medications. You can not drive until you are cleared by your primary care provider or your neurologist. You could harm yourself or others if you crashed your car while driving and had a seizure. The sate per law has been notified of this seizure. Call your Primary Care Provider in the morning to discuss your seizure, your medications, and further testing/follow-up.
[2016-09-11 03:26] VITALS: BP 123/85; PULSE 91; O2SAT 95
--- NOTE | 2016-09-11 07:22 | DIAGNOSTIC IMAGING REPORT ---
CT SCAN OF THE BRAIN WITHOUT IV CONTRAST CLINICAL HISTORY: Change in mental status. COMPARISON STUDY: CT of the brain dated 06/27/2012. TECHNIQUE: Unenhanced axial CT scan of the brain is performed from the vertex to the skull base. Automated dose control exposure was utilized. CT DOSE: 537.48 mGy.cm FINDINGS: Brain parenchyma: The brain parenchyma is normal in appearance. There is no hemorrhage, mass effect, or evidence of acute territorial ischemia by CT criteria. -white matter is preserved. No extra-axial fluid collection is seen. Ventricles, sulci, cisterns: Normal in configuration. Intracranial vasculature: The visualized intracranial vasculature at the skull base is normal in appearance. Calvarium: Unremarkable. Sinuses and mastoids: A retention cyst is seen in the right sphenoid sinus. Frontal secretions are present in the left sphenoid sinus. The remaining Visualized paranasal sinuses are clear. The mastoid air cells are well pneumatized. Orbits: The bony orbits are grossly intact. IMPRESSION: There is no hemorrhage, mass effect, or evidence of acute territorial ischemia by CT criteria. Electronically signed by: Neville Yosusef M.D. 09/11/2016 7:21 AM Dictated Date/Time: 09/11/2016 7:19 AM
--- NOTE | 2016-09-11 07:53 | DIAGNOSTIC IMAGING REPORT ---
SINGLE VIEW CHEST CLINICAL HISTORY: Change in mental status. FINDINGS: An AP, portable, upright chest radiograph is compared to study dated 07/08/2016. The examination is degraded by portable technique and patient rotation. The cardiomediastinal silhouette is unremarkable. The lungs and pleural spaces are clear. No pneumothorax is seen. The bony thorax is grossly intact. IMPRESSION: No active disease in the chest. Electronically signed by: Neville Youssef M.D. 09/11/2016 7:51 AM Dictated Date/Time: 09/11/2016 7:50 AM
[2016-09-15 18:32] LABS: COCAINE, URINE 12100 NG/ML (CUTOFF=100); COD UR NEGATIVE NG/ML (CUTOFF=50); HYDROCOD UR 210 NG/ML (CUTOFF=50); HYDROMOR UR NEGATIVE NG/ML (CUTOFF=50); HYDROXYETHYLFLURAZEPAM CONF NEGATIVE NG/ML (CUTOFF=50); HYDROXYMIDAZOLAM NEGATIVE NG/ML (CUTOFF=50); HYDROXYTRIAZOLAM CONF NEGATIVE NG/ML (CUTOFF=50); MORPHINE UR NEGATIVE NG/ML (CUTOFF=50); NORHYDROCODONE CONF UR 350 NG/ML (CUTOFF=50); OXYMORPH UR 192 NG/ML (CUTOFF=50); TEMAZEPAM CONF 59 NG/ML (CUTOFF=50)
== END 2016-09-11 03:28 | disposition home or self-care (01) ==
LOC: EDBD 00:13 → C.EDB 00:14
DX: G40.909 Epilepsy, unspecified, not intractable, without status epilepticus (principal); R00.0 Tachycardia, unspecified; I10 Essential (primary) hypertension; J45.909 Unspecified asthma, uncomplicated; F17.200 Nicotine dependence, unspecified, uncomplicated; Z90.710 Acquired absence of both cervix and uterus; Z88.5 Allergy status to narcotic agent; Z80.9 Family history of malignant neoplasm, unspecified; Z84.1 Family history of disorders of kidney and ureter